=== PATIENT | female | born 1975 | race Caucasian/White ===

== ENCOUNTER 2020-06-14 09:58 | Emergency (ER) | payer MEDICAID ==
[~2020-06-14] VITALS: Ht 162.6 cm; Wt 90.7 kg
[2020-06-14 10:10] VITALS: BP_SYST 136
--- NOTE | 2020-06-14 10:14 | NUR ---
AMBULATED TO BED 5
--- NOTE | 2020-06-14 10:20 | NUR ---
ER DR. ALVA AT THE BEDSIDE EXAMINING PT
--- NOTE | 2020-06-14 10:25 | NUR ---
PT CAME IN FROM HOME FOR LEFT ARM PAIN S/P FALL AND BRACE WITH ARM NOW C/O PAIN WITH DEFORMITY NOTED. PT PROVIDED WITH SLING FOR COMFORT MEASURES. AAOX4, VS STABLE
[2020-06-14] MEDS ORDERED: KETOROLAC TROMETHAMINE 60 MG/2 ML VIAL IM ONE (11:00)
--- NOTE | 2020-06-14 11:20 | NUR ---
PORTABLE X-RAY AT THE BEDSIDE
[2020-06-14] MEDS ORDERED: NAPR-1172 PO (12:19)
[2020-06-14 12:40] VITALS: BP_SYST 135
--- NOTE | 2020-06-14 12:40 | NUR ---
Patient given written and verbal discharge instructions and verbalizes understanding. ER MD discussed with patient the results and treatment provided. Patient in stable condition. ID arm band removed. Rx of naproxen given. Patient educated on pain management and to follow up with PMD. Pain Scale 0/10 Opportunity for questions provided and answered. Medication side effect fact sheet provided.
== END 2020-06-14 12:40 | disposition home or self-care (01) ==
LOC: SED 09:58
DX: S52.502A Unspecified fracture of the lower end of left radius, initial encounter for closed fracture (principal); Z79.899 Other long term (current) drug therapy; W18.39XA Other fall on same level, initial encounter; Y93.89 Activity, other specified; Y92.89 Other specified places as the place of occurrence of the external cause; Y99.8 Other external cause status
CPT/HCPCS: 29125; 73110; 96372; 99283; J1885